=== PATIENT | male | born 1990 | race Caucasian/White ===

== ENCOUNTER 2019-02-16 04:03 | Outpatient (CLI) | END 2019-02-16 04:27 | disposition short-term general hospital (02) | LOC: AMBL 04:03 | PROVIDERS: ATTEND Internal Medicine Geriatric Medicine | DX: M79.651 Pain in right thigh (principal); M79.671 Pain in right foot; M79.89 Other specified soft tissue disorders; T07.XXXA Unspecified multiple injuries, initial encounter; V89.2XXA Person injured in unspecified motor-vehicle accident, traffic, initial encounter ==